=== PATIENT | female | born 1960 | race Caucasian/White ===

== ENCOUNTER 2020-12-23 11:18 | Outpatient (CLI) | payer BC ==
[2020-12-23 13:51] LABS: SARS-CoV-2 NAA Rapid Test Not Detected (NotDetected)
== END 2020-12-23 11:19 | disposition home or self-care (01) ==
LOC: LABBT 11:18
PROVIDERS: ATTEND Urology
DX: Z01.818 Encounter for other preprocedural examination (principal); N20.0 Calculus of kidney; Z20.822 Contact with and (suspected) exposure to COVID-19
CPT/HCPCS: 93005; 93010; U0002

== ENCOUNTER 2020-12-24 08:44 | Day surgery (SDC) | payer BC ==
[2020-12-23 12:09] VITALS: BMI 30.9
[2020-12-24] MEDS ORDERED: Levofloxacin 500 mg/D5W 100 ml Premix Bag ONE (09:24)
[2020-12-24] MEDS ORDERED: Iothalamate Meglumine 60% 50 ML VIAL FS ONE (11:06)
[2020-12-24] MEDS ORDERED: Fentanyl 100 MCG/2 ML VIAL ONE ×2 (11:10→12:24)
[2020-12-24] MEDS ORDERED: Ondansetron PF 4 MG/2 ML Vial ONE (11:26)
[2020-12-24] MEDS ORDERED: PROPOFOL 200 MG/20 ML VIAL ONE (11:26)
[2020-12-24] MEDS ORDERED: Lidocaine 1% PF 5 ML VIAL ONE (11:26)
[2020-12-24] MEDS ORDERED: Phenazopyridine HCl 100 MG TAB ONE (12:13)
[2020-12-24] MEDS ORDERED: Ketorolac Tromethamine 30 MG/ML VIAL ONE (12:13)
[2020-12-24] MEDS ORDERED: Oxybutynin 5 MG TAB ONE (12:13)
[2020-12-24] MEDS ORDERED: Promethazine HCl 25 MG/ML VIAL ONE (12:14)
[2020-12-24] MEDS ORDERED: HYDROcodone/Acetaminophen 5/325 mg Tablet ONE (14:57)
[2020-12-24] MEDS ORDERED: Ondansetron ODT 4 MG TAB ONE (15:10)
== END 2020-12-24 15:15 | disposition home or self-care (01) ==
LOC: SDC 08:44
PROVIDERS: ATTEND Urology
PROC: 0T768DZ Dilation of Right Ureter with Intraluminal Device, Via Natural or Artificial Opening Endoscopic (ICD-10-PCS; principal; 2020-12-24)
PROC: 0TC68ZZ Extirpation of Matter from Right Ureter, Via Natural or Artificial Opening Endoscopic (ICD-10-PCS; principal; 2020-12-24)
DX: N13.2 Hydronephrosis with renal and ureteral calculous obstruction (principal); I25.10 Atherosclerotic heart disease of native coronary artery without angina pectoris; Z79.82 Long term (current) use of aspirin; Z79.899 Other long term (current) drug therapy; Z88.0 Allergy status to penicillin; Z95.5 Presence of coronary angioplasty implant and graft
CPT/HCPCS: 74420; 82365; 88300; C2617; J1885; J1956; J2405; J2550; J2704; J3010; Q0162; Q9961

== ENCOUNTER 2023-01-20 11:08 | Emergency (ER) | payer BC, OTHER ==
[2023-01-20] MEDS ORDERED: Aspirin Chewable 81 MG TAB ONE (11:43)
[2023-01-20 11:59] LABS: #Eosinphils 0.2 thou/uL (0.0-0.7); #Monocytes 0.4 thou/uL (0.11-0.59); #Neutrophils 4.2 thou/uL (1.40-6.50); %Basophils 0.5 % (0.0-1.0); %Eosinophils 3.8 % (0.0-10.0); %Lymphocytes 17.4 % (21.0-51.0); %Monocytes 6.8 % (0.0-10.0); %Neutrophils 71.2 % (42.0-75.0); Hematocrit 40.9 % (36.0-47.0); Hemoglobin 14.1 g/dL (12.0-16.0); Mean Corpuscular HGB CONC 34.5 g/dL (32.0-36.0); Mean Corpuscular Hemoglobin 31.6 pg (27.0-31.0); Mean Corpuscular Volume 91.7 fl (78.0-98.0); Platelet Count 183 10x3/uL (130-400); Red Blood Cell (RBC) Count 4.46 mill/uL (4.20-5.40); White Blood Cell (WBC) Count 5.9 10x3/uL (4.8-10.8)
[2023-01-20 12:27] LABS: ALT (SGPT) 39 U/L (8-55); AST (SGOT) 30 U/L (5-34); Albumin 4.4 g/dL (3.4-4.8); Alkaline Phosphatase 99 U/L (40-110); Anion Gap 14 mmol/L (10-20); BUN (Urea Nitrogen) 11 mg/dL (9.8-20.1); Bilirubin, Total 0.7 mg/dL (0.2-1.2); Calc. Creatinine Clearance 0 mL/min (70-130); Calcium 8.9 mg/dL (7.8-10.44); Carbon Dioxide 23 mmol/L (23-31); Chloride 107 mmol/L (98-107); Estimated GFR 82; Globulin 2.7 g/dL (2.4-3.5); Glucose 114 mg/dL (80-115); Lipase 14 U/L (8-78); Potassium 4.2 mmol/L (3.5-5.1); Protein, Total 7.1 g/dL (5.8-8.1); Sodium 140 mmol/L (136-145)
[2023-01-20 12:29] LABS: Troponin I Less than 0.010 ng/mL (< 0.028)
== END 2023-01-20 15:35 | disposition short-term general hospital (02) ==
LOC: ERS 11:08
DX: R07.9 Chest pain, unspecified (principal)
CPT/HCPCS: 36415; 71045; 80053; 83690; 84484; 85025; 93005; 94760